=== PATIENT | female | born 1960 | race Caucasian/White ===

== ENCOUNTER 2022-06-23 14:20 | Outpatient (CLI) | payer OTHER, SELFPAY ==
--- NOTE | ~2022-06-23 | XR_ITS ---
EXAM: XR lumbar spine 2-3V DATE: 06/23/2022 15:04 HISTORY: R76.8 - Other specified abnormal immunological findings i... . COMPARISON: None available. FINDINGS: Osteopenia. 5 nonrib-bearing lumbar-type vertebral bodies. Pedicles intact. Minimal grade 1 anterolistheses at L4-5 and L5-S1. Vertebral body heights preserved. Mild disc space narrowing at L3 -4, mild multilevel marginal osteophytosis and disc calcification. Moderate-severe multilevel facet s clerosis and hypertrophy with interspinous narrowing. No fracture or dislocation. IMPRESSION: Mild grade 1 anterolistheses at L4-5 and L5-S1. Mild multilevel degenerative disc disease . Moderate-severe multilevel lumbar facet arthropathy. Reviewed, dictated and finalized at location K. IMPRESSION: Mild grade 1 anterolistheses at L4-5 and L5-S1. Mild multilevel deg enerative disc disease. Moderate-severe multilevel lumbar facet arthropathy.
--- NOTE | ~2022-06-23 | XR_ITS ---
Cervical Spine: AP, lateral, open-mouth views Clinical History: Abnormal immunological findings Findings: The normal lordotic curve is maintained. No fracture or subluxation evident. There is advan nelda degenerative disc narrowing at C6-C7. There is moderate degenerative change at C5-C6, with anteri or marginal osteophytes at this level. Mild facet arthropathy scattered in the cervical spine. Pre-ve rtebral soft tissues are unremarkable. Impression: Mild to moderate degenerative spondylosis, as detailed above. Reviewed, dictated and finalized at location M. Impression: Mild to moderate degenerative spondylosis, as detailed above.
--- NOTE | ~2022-06-23 | XR_ITS ---
Right foot Technique: AP and lateral standing views were obtained. Clinical History: Abnormal immunological findings Findings: No acute fracture or dislocation is seen. Osseous alignment is anatomic. There is advanced degenerative change at the first metatarsophalangeal joint. Remaining joint spaces are preserved. Sof t tissues are unremarkable. 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 No other significant findings. Reviewed, dictated and finalized at location . 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 No other significant findings.
--- NOTE | ~2022-06-23 | XR_ITS ---
EXAM: XR foot LT standing 2V DATE: 06/23/2022 15:04 HISTORY: R76.8 - Other specified abnormal immunological findings i... . COMPARISON: None available. FINDINGS: Decreased mineralization. No fracture or dislocation. No lytic or blastic lesion. Mild donavan ateral hallux valgus. Joint space narrowing subchondral sclerosis and osteophytosis at the bilateral first MTP joints, moderate on the left and severe on the right. Loss of the longitudinal arch bilater ally. Mild bilateral degenerative change in the midfoot joints. Bilateral moderate Achilles enthesopa thy. Mild right plantar enthesopathy. No erosion or periosteal change. Soft tissues within normal silva its. 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 Moderate bilateral midfoot osteoarthritis. Bilateral pes planus and Achilles enthesopathy. Reviewed, dictated and finalized at location K. IMPRESSION: Severe right and moderate left first MTP osteoarthritis with mild b ilateral hallux valgus. Moderate bilateral midfoot osteoarthritis. Bilateral pe s planus and Achilles enthesopathy.
--- NOTE | ~2022-06-23 | XR_ITS ---
Bilateral Hands Technique: Bilateral PA, oblique, and lateral views, and ball-catcher's view were obtained. Clinical History: Abnormal immunological findings Findings: No acute fracture or dislocation is seen. There are mild degenerative changes scattered thr oughout the interphalangeal joints of both hands. There is moderate to severe osteoarthritic change a t the bilateral third metacarpophalangeal joints. There is mild degenerative change at the bilateral first carpal metacarpal joints. Soft tissues are unremarkable. Impression: Osteoarthritic changes, as above, worst at the bilateral third metacarpophalangeal joints. Reviewed, dictated and finalized at location M. Impression: Osteoarthritic changes, as above, worst at the bilateral third metacarpophalang eal joints.
--- NOTE | ~2022-06-23 | XR_ITS ---
AP and oblique views of the SI joints CLINICAL HISTORY: Abnormal immunological findings FINDINGS: Bilateral SI joints and bilateral hip joints appear intact. No sclerotic or erosive change. No degenerative change. Osseous structures appear intact. Soft tissues are unremarkable. IMPRESSION: Unremarkable exam. Reviewed, dictated and finalized at location . IMPRESSION: Unremarkable exam.
== END 2022-06-23 14:21 | disposition home or self-care (01) ==
PROVIDERS: PCP Nurse Practitioner Family; Visit Provider Internal Medicine
DX: R76.8 Other specified abnormal immunological findings in serum (principal); Z71.89 Other specified counseling; Z79.899 Other long term (current) drug therapy; M47.892 Other spondylosis, cervical region; M19.041 Primary osteoarthritis, right hand; M19.042 Primary osteoarthritis, left hand; M19.071 Primary osteoarthritis, right ankle and foot; M19.072 Primary osteoarthritis, left ankle and foot; M51.36 Other intervertebral disc degeneration, lumbar region
CPT/HCPCS: 72040; 72100; 72202; 73130; 73620

== ENCOUNTER 2022-08-05 11:10 | Outpatient (CLI) | payer OTHER, SELFPAY ==
[2022-08-05 11:52] LABS: Hematocrit 43.2 % (37.0-47.0); Mean Corpuscular HGB Conc 32.4 g/dl (32-36); Mean Corpuscular Hemoglobin 28.3 pg (26-34); Mean Corpuscular Volume 87.4 fl (80-100); Mean Platelet Volume 9.7 fl (7.4-10.4); Platelet Count Result 311 k/mm3 (150-375); Red Blood Count 4.94 M/mm3 (4.2-5.4); Red Cell Distribution Width 14.5 % (11.5-14.5); White Blood Count 4.1 K/mm3 (4.5-10.0)
[2022-08-05 12:04] LABS: Alanine Aminotransferase 50 U/L (6-35); Alkaline Phosphatase 156 U/L (38-126); Anion Gap 7 mmol/L (8-16); Aspartate Amino Transferase 38 U/L (14-36); Bilirubin,Total 0.4 mg/dL (0.2-1.3); Blood Urea Nitrogen 12 mg/dL (7-17); CRP 0.9 mg/dL (<1.0); Calcium 8.4 mg/dL (8.4-10.2); Carbon Dioxide 26 mmol/L (22-30); Chloride 105 mmol/L (98-107); Creatine Kinase 28 U/L (30-135); Estimated Glomerular Filt Rate > 60; Glucose 97 mg/dL (65-110); Lactate Dehydrogenase 196 U/L (120-246); Potassium 3.8 mmol/L (3.4-5.0); Sodium 138 mmol/L (137-145); Uric Acid 5.7 mg/dL (2.5-7.5)
[2022-08-05 12:06] LABS: Rheumatoid Factor < 12.0 IU/ML (<12)
[2022-08-05 12:07] LABS: Complement C3 135 mg/dL (88-165)
[2022-08-05 13:27] LABS: Vitamin D 25 Hydroxy 37.1 ng/mL
[2022-08-05 14:05] LABS: Hepatitis B Surface Anti Res Positive; Hepatitis C Virus Antibody Negative (Negative)
[2022-08-05 15:11] LABS: Erythrocyte Sedimentation Rate 20 mm/hr (0-20)
[2022-08-05 16:52] LABS: Hepatitis B Surface Antigen Negative (Negative)
[2022-08-07 15:43] LABS: NIL 0.01 IU/mL; Quantiferon TB Plus, 1T NEGATIVE (NEGATIVE)
[2022-08-09 10:48] LABS: Anti Cyclic Citrullinated Pept <16 Units (<20)
[2022-08-09 20:27] LABS: Anti Cardio Antibody IgM 7.3 MPL-U/mL (<20.0); Anti Cardiolipin Antibody IgA <2.0 APL-U/mL (<20.0); Anti Cardiolipin Antibody IgG <2.0 GPL-U/mL (<20.0)
[2022-08-10 08:40] LABS: SM Antibody <1.0; SM/RNP Antibody <1.0; SS-A <1.0; SS-B <1.0
[2022-08-10 13:16] LABS: Lupus dRVVT Screen 42 sec (<=45); PTT-LA Screen 30 sec (<=40)
[2022-08-11 00:30] LABS: Aldolase 5.6 U/L (<=8.1)
[2022-08-12 06:35] LABS: ANA Titer 1:40 (Negative)
== END 2022-08-05 11:11 | disposition home or self-care (01) ==
LOC: ANHLAB 11:11
PROVIDERS: PCP Nurse Practitioner Family; Visit Provider Internal Medicine
DX: R76.8 Other specified abnormal immunological findings in serum (principal); M79.661 Pain in right lower leg; M79.662 Pain in left lower leg; M79.641 Pain in right hand; M79.642 Pain in left hand; M15.9 Polyosteoarthritis, unspecified; Z71.89 Other specified counseling; Z79.899 Other long term (current) drug therapy; M05.79 Rheumatoid arthritis with rheumatoid factor of multiple sites without organ or systems involvement
CPT/HCPCS: 36415; 80053; 82085; 82306; 82550; 83615; 84550; 85027; 85613; 85652; 85730; 86038; 86039; 86140; 86146; 86147; 86160; 86200; 86225; 86235; 86430; 86480; 86706; 86803; 87340